=== PATIENT | male | born 1980 | race African-American/Black ===

== ENCOUNTER 2021-08-09 11:00 | Inpatient (IN) | payer OTHER ==
[~2021-08-09] VITALS: Ht 175.3 cm; Wt 234.0 kg
[2021-08-09 11:16] VITALS: BP 176/104
[2021-08-09 11:40] LABS: ABSOLUTE NEUTROPHILS 6.8 thou/uL (1.4-8.2); BASOPHILS 0.6 % (0.0-2.0); EOSINOPHILS 2.2 % (0.0-3.0); HEMATOCRIT 37.6 % (42.0-52.0); HEMOGLOBIN 12.3 gm/dL (14.0-18.0); LYMPHOCYTES 12.9 % (24.0-44.0); MCH 24.6 pg (26.0-34.0); MCHC 32.7 g/dL (28.0-37.0); MCV 75.4 fL (80.0-100.0); MONOCYTES 7.9 % (1.0-8.0); PLATELET COUNT 312 thou/uL (150-400); POLYS 76.4 % (36.0-66.0); RBC 4.99 mil/uL (4.50-6.00); RDW 19.7 % (10.5-14.5); WBC 8.9 thou/uL (4.0-11.0)
[2021-08-09 11:50] LABS: CALCIUM 8.6 mg/dL (8.5-10.1); CREATININE 0.9 mg/dL (0.7-1.3); POTASSIUM 3.8 mmol/L (3.5-5.1)
[2021-08-09 12:24] LABS: ANISOCYTOSIS 2+
[2021-08-09 12:25] LABS: TARGET CELLS 1+
[2021-08-09 14:52] LABS: BE(vivo) 2.9 mmol/L (-2 to +3); HCO3 33.2 mmol/L (22.0-26.0); PCO2 83.2 mmHg (35.0-45.0); PO2 97.7 mmHg (80.0-100.0); pH 7.219 (7.360-7.450); sO2 95.7 % (92.0-98.0)
[2021-08-09 16:10] VITALS: BP 178/97
[2021-08-09 19:57] VITALS: BP 160/110
[2021-08-09 21:57] LABS: BE(vivo) 8.2 mmol/L (-2 to +3); sO2 91.9 % (92.0-98.0)
[2021-08-09 21:58] LABS: pH 7.329 (7.360-7.450)
[2021-08-10 01:10] LABS: HCO3 39.4 mmol/L (22.0-26.0); PO2 96.5 mmHg (80.0-100.0)
[2021-08-10 01:11] LABS: PCO2 86.9 mmHg (35.0-45.0); pH 7.274 (7.360-7.450)
[2021-08-10 08:15] VITALS: BP 141/93
--- NOTE | 2021-08-10 09:52 | EKG ---
[address] [place] [address] ELECTROCARDIOGRAM REPORT Name: ROHAN NAJERA Room #: 208-P ADM IN M.R.#: [id number] Admission: 08/09/21 Attend Phys: Elbert Chavez MD Discharge: Date of : 82 Report #: [id number] [facility] ED Test Date: 2021-08-09 Test Time: 11:30:27 Pat Name: ROHAN NAJERA Department: Room: 208 Gender: M Stripe Marker: UNKNOWN : 1980 Requested By: Elbert Chavez Order Number: [id number] MD: Lamont Alamo Measurements Intervals [place] Rate: 103 P: 59 NM: 153 QRS: -81 QRSD: 107 T: 36 QT: 375 QTc: 491 Interpretive Statements Sinus tachycardia Probable left atrial enlargement Incomplete RBBB and LAFB Prolonged QT interval Baseline wander in lead(s) V4 No previous ECG available for comparison Electronically Signed On 08-10-2021 9:51:51 MANAGER OF PROGRAM by Lamont Alamo [email or web address] <ELECTRONICALLY SIGNED> By: Lamont Alamo MD 08/10/21 [id number] MD GÉNESIS Rubin
[2021-08-10 12:30] VITALS: BP 131/84
[2021-08-10 15:30] VITALS: BP 120/93; BP 159/88
[2021-08-10 19:29] VITALS: BP 132/77
[2021-08-11 04:01] VITALS: BP 121/75
[2021-08-11 04:25] LABS: ALBUMIN 2.8 g/dL (3.4-5.0); CALCIUM 7.9 mg/dL (8.5-10.1); TOTAL BILIRUBIN 0.3 mg/dL (0.2-1.0); TOTAL PROTEIN 6.8 g/dL (6.4-8.2)
[2021-08-11 04:42] LABS: ABSOLUTE NEUTROPHILS 4.7 thou/uL (1.4-8.2); BASOPHILS 0.4 % (0.0-2.0); EOSINOPHILS 1.4 % (0.0-3.0); HEMATOCRIT 36.4 % (42.0-52.0); HEMOGLOBIN 11.8 gm/dL (14.0-18.0); LYMPHOCYTES 24.2 % (24.0-44.0); MCH 24.5 pg (26.0-34.0); MCHC 32.3 g/dL (28.0-37.0); MCV 75.7 fL (80.0-100.0); MONOCYTES 10.7 % (1.0-8.0); PLATELET COUNT 319 thou/uL (150-400); POLYS 63.3 % (36.0-66.0); RBC 4.82 mil/uL (4.50-6.00); RDW 19.3 % (10.5-14.5); WBC 7.3 thou/uL (4.0-11.0)
[2021-08-11 05:06] LABS: BE(vivo) 10.1 mmol/L (-2 to +3); HCO3 38.8 mmol/L (22.0-26.0); pH 7.338 (7.360-7.450); sO2 96.9 % (92.0-98.0)
[2021-08-11 05:07] LABS: PCO2 73.9 mmHg (35.0-45.0)
[2021-08-11 08:05] VITALS: BP 139/80
[2021-08-11 11:50] VITALS: BP 147/81
[2021-08-11 15:50] VITALS: BP 139/73
[2021-08-11 20:00] VITALS: BP 151/77
[2021-08-11 20:42] VITALS: BP 151/77
[2021-08-11 22:35] LABS: URINE BILIRUBIN NEGATIVE (Negative); URINE BLOOD NEGATIVE (Negative); URINE CLARITY CLEAR; URINE COLOR YELLOW; URINE GLUCOSE-RANDOM* NEGATIVE (Negative); URINE KETONES NEGATIVE (Negative); URINE LEUKOCYTES-REFLEX NEGATIVE (Negative); URINE NITRITE-REFLEX NEGATIVE (Negative); URINE PROTEIN (DIPSTICK) NEGATIVE (Negative); URINE SPECIFIC GRAVITY 1.015 (1.005-1.035)
[2021-08-12 05:09] VITALS: BP 151/70
[2021-08-12 07:55] VITALS: BP 124/68
[2021-08-12 11:45] VITALS: BP 138/86
[2021-08-12 16:00] VITALS: BP 130/72
[2021-08-12 19:48] VITALS: BP 119/75
== END 2021-08-13 | disposition home health service (06) | DRG 193 ==
LOC: ER 11:00 → EROBS 14:52 → 2N 14:52 → EROBS 16:58 → 2N 08-12 23:59
PROVIDERS: Internal Medicine; Nurse Practitioner Family; Pediatrics; Student in an Organized Health Care Education/Training Program; ADMIT Hospitalist; ATTEND Hospitalist
PROC: 5A09357 Assistance with Respiratory Ventilation, Less than 24 Consecutive Hours, Continuous Positive Airway Pressure (ICD-10-PCS; principal; 2021-08-09)
PROC: 5A09357 Assistance with Respiratory Ventilation, Less than 24 Consecutive Hours, Continuous Positive Airway Pressure (ICD-10-PCS; 2021-08-11)
PROC: 5A09357 Assistance with Respiratory Ventilation, Less than 24 Consecutive Hours, Continuous Positive Airway Pressure (ICD-10-PCS; 2021-08-12)
DX: J18.9 Pneumonia, unspecified organism (principal); J96.01 Acute respiratory failure with hypoxia; I50.31 Acute diastolic (congestive) heart failure; J96.02 Acute respiratory failure with hypercapnia; I50.32 Chronic diastolic (congestive) heart failure; E66.2 Morbid (severe) obesity with alveolar hypoventilation; Z68.45 Body mass index [BMI] 70 or greater, adult; I11.0 Hypertensive heart disease with heart failure; Z20.822 Contact with and (suspected) exposure to COVID-19; I16.0 Hypertensive urgency; D64.9 Anemia, unspecified; R53.81 Other malaise
CPT/HCPCS: 10081; 10194